=== PATIENT | female | born 1975 | race Hispanic/Latino ===

== ENCOUNTER 2022-05-25 09:18 | Emergency (ER) | payer SELFPAY ==
[~2022-05-25] VITALS: Ht 160 cm; Wt 66.0 kg
[2022-05-25 09:28] VITALS: BP 117/78
[2022-05-25 09:30] VITALS: BP 119/80
[2022-05-25 09:31] VITALS: BP 115/76
[2022-05-25 10:19] LABS: URINE BILIRUBIN - DIPSTICK NEGATIVE (NEGATIVE); URINE BLOOD DIPSTICK MODERATE (NEGATIVE); URINE COLOR YELLOW; URINE GLUCOSE - DIPSTICK NEGATIVE (NEGATIVE); URINE KETONE NEGATIVE (NEGATIVE); URINE LEUK ESTERASE NEGATIVE (NEGATIVE); URINE PROTEIN - DIPSTICK NEGATIVE (NEG-TRACE); URINE SPECIFIC GRAVITY >=1.030; URINE UROBILINOGEN - DIPSTICK 0.2 E.U./dL (0.2)
[2022-05-25 10:21] LABS: URINE NITRITE - DIPSTICK NEGATIVE (Negative)
[2022-05-25 10:29] LABS: URINE SQUAMOUS EPITHELIAL CELL FEW EPI/hpf (0-FEW); URINE WBC 0-2 WBC/hpf (0-5)
[2022-05-25 10:45] LABS: BASO% 0.2 % (0-3); EOS% 1.1 % (0-8); HEMATOCRIT 42.1 % (37.0-47.0); HEMOGLOBIN 13.2 g/dl (12.0-16.0); IMMATURE GRANULOCYTES 0.1 % (0.0-5.0); LYMPH% 26.8 % (15-41); MEAN CELL VOLUME 80.5 fL CALC (80.0-100.0); MEAN CORPUSCULAR HGB 25.2 pG CALC (26.0-32.0); MEAN CORPUSCULAR HGB CONC 31.4 g/dL CAL (32.0-36.0); MONO% 4.8 % (2-13); NEUT# 5.61 thou/uL (2.00-7.15); RED BLOOD COUNT 5.23 mill/uL (4.20-5.60); RED CELL DISTRI WIDTH 14.2 % (11.5-15.5)
[2022-05-25 10:51] LABS: ALBUMIN 4.2 g/dL (3.2-5.0); ALKALINE PHOSPHATASE 88 u/l (38-126); ANION GAP 10 (6-22 (CALC)); BILIRUBIN, TOTAL 0.3 mg/dL (0.02-1.3); BUN 16 mg/dL (7-17); BUN/CREATININE RATIO 28 (12-20 (CALC)); CARBON DIOXIDE 25 mmol/l (22-30); CHLORIDE 106 mmol/l (95-108); CREATININE 0.6 mg/dL (0.5-1.0); GFR FOR AFR.AMER. > 60 ML/MIN (>=60 (CALC)); GFR OTHER RACES > 60 ML/MIN (>=60 (CALC)); POTASSIUM 4.4 mmol/l (3.5-5.1); SGOT/AST 35 u/l (14-36); SODIUM 136 mmol/l (137-146); TOTAL PROTEIN 7.6 g/dL (6.3-8.2)
[2022-05-25] MEDS ORDERED: CEPHALEXIN500 MG PO (11:56)
[2022-05-25] MEDS ORDERED: FLEXERIL5 M1 PO (11:56)
[2022-05-25] MEDS ORDERED: NAPROXEN500 MG PO (11:56)
[2022-05-25 12:05] VITALS: BP 115/76
== END 2022-05-25 12:12 | disposition home or self-care (01) | DRG 696 ==
LOC: ED 09:18
PROVIDERS: Family Medicine
DX: R31.9 Hematuria, unspecified (principal); M54.50 Low back pain, unspecified